=== PATIENT | female | born 1980 | race Caucasian/White ===

== ENCOUNTER 2018-05-13 10:43 | Emergency (ER) | payer SELFPAY ==
--- NOTE | 2018-05-13 11:52 | RADIOLOGY REPORT (SQ) ---
EXAM DESCRIPTION: ELBOW LEFT OVER 2 VIEWS COMPLETED DATE/TIME: 05/13/2018 11:34 am REASON FOR STUDY: hit on counter. pain COMPARISON: None. NUMBER OF VIEWS: Three views left elbow. LIMITATIONS: None. FINDINGS: There is no acute or significant bone, joint or soft tissue abnormality. OTHER: No other significant finding. IMPRESSION: NORMAL STUDY. TECHNICAL DOCUMENTATION: JOB ID: [id number] Reading location - IP/workstation name: [email or web address]
--- NOTE | 2018-05-13 12:13 | ER Document Report ---
ED Extremity Problem, Upper - General Chief Complaint: Elbow Injury Stated Complaint: ELBOW PAIN Time Seen by Provider: 05/13/18 11:06 Mode of Arrival: Ambulatory Information source: Patient Notes: Patient is a 37-year-old female comes emergency room complaining of left elbow pain. Patient states that late yesterday afternoon she was attempting to crawl over a baby gate that she uses to keep her dog behind and as she did she lost her balance and started to follow reaching out with her left arm and landing on her elbow on a hard countertop. She states that there was no severe pain at the moment and that she had no idea she hurt her self. She went to bed at night when she woke up this morning she had severe pain in her left elbow she took some ibuprofen and went to work. 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 She denies any other medical problems she does not smoke and she has had a hysterectomy. TRAVEL OUTSIDE OF THE [place] IN LAST 30 DAYS: No - HPI Patient complains to provider of: Injury Onset: Yesterday Recent injury: Yes Where: Home Quality of pain: Burning, Other - Numbness Severity of pain: Moderate Pain Level: 2 Context: Blow Associated symptoms: None Exacerbated by: Movement Relieved by: Nothing, Positioning Similar symptoms previously: No Recently seen / treated by doctor: No - Related Data Allergies/Adverse Reactions: No Known Allergies Allergy (Verified 05/13/18 10:44) Past Medical History - General Information source: Patient - Social History Smoking Status: Never Smoker Cigarette use (# per day): No Chew tobacco use (# tins/day): No Smoking Education Provided: No Frequency of alcohol use: None Drug Abuse: None Family History: Reviewed & Not Pertinent Patient has suicidal ideation: No Patient has homicidal ideation: No Renal/ Medical History: Denies: Hx Peritoneal Dialysis Past Surgical History: Reports: Hx Hysterectomy, Hx Tubal Ligation Review of Systems - Review of Systems Constitutional: No symptoms reported EENT: No symptoms reported Cardiovascular: No symptoms reported Respiratory: No symptoms reported Gastrointestinal: No symptoms reported Genitourinary: No symptoms reported Female Genitourinary: No symptoms reported Musculoskeletal: Joint pain, Joint swelling Skin: No symptoms reported Hematologic/Lymphatic: No symptoms reported Neurological/Psychological: No symptoms reported -: Yes All other systems reviewed and negative Physical Exam - Vital signs Vitals: Temp Pulse Resp BP Pulse Ox 98.6 F 83 14 121/80 98 05/13/18 10:49 05/13/18 10:49 05/13/18 10:49 05/13/18 10:49 05/13/18 10:49 Interpretation: Normal - Notes Notes: Well-nourished well-developed female no apparent distress - General General appearance: Appears well In distress: None - HEENT Head: Normocephalic, Atraumatic Eyes: Normal - Respiratory Respiratory status: No respiratory distress Chest status: Nontender Breath sounds: Normal. No: Rales, Rhonchi, Stridor, Wheezing Chest palpation: Normal - Cardiovascular Rhythm: Regular Heart sounds: Normal auscultation Murmur: No - Extremities General upper extremity: Tender, Edema, Normal color, Normal strength, Normal temperature. No: Normal ROM General lower extremity: Normal inspection, Nontender, Normal ROM, Normal strength, Normal weight bearing Elbow: Tender, Limited ROM, Swollen bursa, Other - examination of patient's elbow shows that there is some mild swelling and edema to or near the medial epicondyle. There is some swelling of the bursa sac at the olecranon. The swelling is just mild. Patient has good radial and ulnar pulses distally good cap refill in the nailbeds of the fingers of the hand she has extension to full but difficult secondary to pain. She has good flexion.. No: Ecchymosis Forearm: Normal, Tender. No: Abrasion, Deformity, Instability Wrist: Normal, Nontender. No: Dislocation - Skin Skin Temperature: Warm Skin Moisture: Dry Skin Color: Normal, Century Course - Re-evaluation Re-evalutation: 05/19/18 14:03 I explained to patient that this is inflamed area from her hitting it on the countertop that she needs to ice when she gets home and after work and ibuprofen for pain or discomfort. At this time there is no amount of fluid to drain. - Vital Signs Vital signs: Temp Pulse Resp BP Pulse Ox 98.2 F 71 14 121/82 99 05/13/18 12:24 05/13/18 12:24 05/13/18 12:24 05/13/18 12:24 05/13/18 12:24 Procedures - Immobilization Left Elbow Time completed: 12:15 Pre-Proc Neuro Vasc Exam: Normal Immobilizer type: Sling Performed by: PCT Post-Proc Neuro Vasc Exam: Normal, Unchanged from pre-exam Alignment checked and good: Yes Discharge - Discharge Clinical Impression: Left elbow contusion Qualifiers: Encounter type: initial encounter Qualified Code(s): S50.02XA - Contusion of left elbow, initial encounter Condition: Stable Disposition: HOME, SELF-CARE Instructions: Contusion ([facility]), Nerve Contusion ([facility]) Additional Instructions: As of informed you there is no acute findings on the x-ray of your elbow. That leaves us with the possibility of 2 1 a bruise to the bone area and to bruise to the nerve area. At this point it could be either one you will have some swelling in your arm arm which is normal. We will place you in a sling ice to the elbow at least 3 times a day for the next couple of days. The ibuprofen for pain and discomfort. You may alternate that with ibuprofen with Tylenol every 4 hours. Tylenol actually just blocks pain receptors in your brain and says "I have no pain". It does nothing for the actual inflammation or problems that ibuprofen does work on the inflammation. If you continue to have pain or discomfort he may need to be evaluated by your primary physician for possible referral to orthopedics. If for any reason you have problems obtaining a visit with your primary care provider and need reexamining please return to ER for recheck. Prescriptions: Ibuprofen 800 mg PO TID #30 tablet Forms: Elevated Blood Pressure, Parent Work Note
[2018-05-13 12:26] VITALS: BP 121/82
== END 2018-05-13 12:28 | disposition home or self-care (01) ==
LOC: ER 10:43
DX: S50.02XA Contusion of left elbow, initial encounter (principal); M25.522 Pain in left elbow; W22.09XA Striking against other stationary object, initial encounter; Y93.89 Activity, other specified; Y92.000 Kitchen of unspecified non-institutional (private) residence as the place of occurrence of the external cause; R20.0 Anesthesia of skin
CPT/HCPCS: 99283

== ENCOUNTER 2018-06-10 06:56 | Emergency (ER) | payer SELFPAY ==
--- NOTE | 2018-06-10 07:14 | ER Document Report ---
ED Neck/Back Problem - General Chief Complaint: Neck and Upper Back Pain Stated Complaint: NECK PAIN Time Seen by Provider: 06/10/18 07:14 Notes: 37-year-old female patient emergency department chief complaint of right-sided neck pain. States that she has had no trauma. No fever. No chills. No other problems with eyes, ears, nose, throat. Has a mild headache but does experience migraines. Not the worst headache of her life. Woke up with this pain. Went to work but having this intense sharp shooting pain in her neck. Came here because Feeling like she was about to drop things. 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 TRAVEL OUTSIDE OF THE [place] IN LAST 30 DAYS: No - HPI Onset: This morning Where: Home - Related Data Allergies/Adverse Reactions: No Known Allergies Allergy (Verified 06/10/18 07:02) Past Medical History - General Information source: Patient - Social History Smoking Status: Never Smoker Frequency of alcohol use: None Drug Abuse: None Lives with: Family Family History: CAD, DM, Hypertension - Medical History Medical History: Negative Renal/ Medical History: Denies: Hx Peritoneal Dialysis Past Surgical History: Reports: Hx Hysterectomy, Hx Tubal Ligation Review of Systems - Review of Systems Constitutional: denies: Fever, Malaise, Weakness EENT: denies: Eye pain, Blurred vision, Double vision, Difficulty swallowing, Throat swelling Cardiovascular: denies: Chest pain, Palpitations, Heart racing Respiratory: denies: Cough, Hurts to breathe, Short of breath, Stridor, Wheezing Gastrointestinal: denies: Abdominal pain, Diarrhea, Nausea, Vomiting Musculoskeletal: See HPI, Muscle pain, Muscle stiffness, Neck pain Skin: denies: Change in color, Dryness, Lesions Neurological/Psychological: denies: Confusion, Weakness, Gait changes, Loss of power, Paralysis, Numbness Physical Exam - Vital signs Vitals: Temp Pulse Resp BP Pulse Ox 97.5 F 83 18 129/87 H 98 06/10/18 07:02 06/10/18 07:02 06/10/18 07:02 06/10/18 07:02 06/10/18 07:02 Interpretation: Normal - General General appearance: Appears well, Alert - HEENT Head: Normocephalic, Atraumatic Eyes: Normal Pupils: PERRL Neck: Other - Mild tenderness palpation of the paraspinal muscles on the right side. Mild pain with range of motion of the neck with rotation. Exacerbated by rotating the neck to the right. No midline tenderness. No nuchal rigidity. No meningismus.. No: Brudzinski, Lymphadenopathy, Meningismus, Neck mass - Respiratory Respiratory status: No respiratory distress Chest status: Nontender Breath sounds: Normal Chest palpation: Normal - Cardiovascular Rhythm: Regular Heart sounds: Normal auscultation Murmur: No - Abdominal Inspection: Normal Distension: No distension Bowel sounds: Normal Tenderness: Nontender Organomegaly: No organomegaly - Extremities General upper extremity: Normal inspection, Nontender, Normal color, Normal ROM , Normal temperature General lower extremity: Normal inspection, Nontender, Normal color, Normal ROM , Normal temperature, Normal weight bearing. No: Tylor's sign - Neurological Neuro grossly intact: Yes Cognition: Normal Orientation: AAOx4 [place] Coma Scale Eye Opening: Spontaneous [place] Coma Scale Verbal: Oriented [place] Coma Scale Motor: Obeys Commands [place] Coma Scale Total: 15 Speech: Normal Motor strength normal: LUE, RUE, LLE, RLE Sensory: Normal - Skin Skin Temperature: Warm Skin Moisture: Dry Skin Color: Normal Course - Re-evaluation Re-evalutation: 06/10/18 07:40 demonstrating signs of torticollis. We will give her some Toradol right now. Patient is driving so cannot give her anything sedating. Will prescribe her some Valium to help as a muscle relaxant. Advised her to use heating pads. Return immediately if she develops any worsening symptoms. - Vital Signs Vital signs: Temp Pulse Resp BP Pulse Ox 97.5 F 83 18 129/87 H 98 06/10/18 07:02 06/10/18 07:02 06/10/18 07:02 06/10/18 07:02 06/10/18 07:02 Discharge - Discharge Clinical Impression: Right torticollis Condition: Good Disposition: HOME, SELF-CARE Instructions: Torticollis ([facility]) Additional Instructions: In the event that you develop fever, worsening symptoms, abnormal rash or other issues please return immediately. Prescriptions: Diazepam [Valium 5 mg Tablet] 5 mg PO TID PRN #15 tablet PRN Reason: Muscle Spasms Meloxicam [Mobic] 7.5 mg PO DAILY 7 Days #7 tablet Forms: Return to Work
[2018-06-10] MEDS ORDERED: KETOROLAC TROMETHAMINE 60 MG/2 ML SDV IM ONE (07:36)
[2018-06-10 08:42] VITALS: BP 120/76
== END 2018-06-10 08:44 | disposition home or self-care (01) ==
LOC: ER 06:56
DX: M43.6 Torticollis (principal); M54.2 Cervicalgia; R51 Headache
CPT/HCPCS: 99283; 96372; J1885